=== PATIENT | male | born 1960 | race Caucasian/White ===

== ENCOUNTER 2018-06-28 09:37 | Inpatient (IN) ==
[2018-06-28] MEDS ORDERED: CeFAZolin Syr 2,000MG/20 ML 2,000 MG/20 ML SYRINGE IVPB ONE (09:57)
[2018-06-28] MEDS ORDERED: Albuterol 2.5 MG/3 ML NEBULIZER IH ONE ×2 (09:57→10:29)
--- NOTE | 2018-06-28 09:58 | History & Physical Report ---
Date of Encounter: 06/28/18 Time of Encounter: 09:58 24 Hour HP Update - Instructions Instructions: If the History and Physical is less than 30 days old and was completed prior to A.M. admission and or procedure and has NOT been updated on calendar day of procedure please complete this update prior to performing procedure. - Update Patient reports changes in Medical Condition: No Changes in examination, assessment, or condition: No Changes in Medication: No Preop tests/diagnostics Reviewed: Yes Surgery Remains Indicated: Yes Consent for Planned Operative Procedure(s) Verified: Yes - Pre-Operative Checklist Preoperative Checklist Indicated: No Prophylactic Antibiotic Ordered: Yes Is VTE Prophylaxis Indicated?: Yes
[2018-06-28] MEDS ORDERED: Ringers Solution, Lactated 1,000 ML IVC SCH ×2 (10:00→15:14)
--- NOTE | 2018-06-28 10:07 | Anesthesia Evaluation PreOp ---
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 HX Other Medical History: GERD, Other (ARTHRITIS, TONSILLAR CA POST XRT CHEMO - DRY MOUTH, DYSPHAGIA TO SOLID FOOD, PEG TUBE) Anesthesia History: No Prior Anesthetic Complications, Past Anesthesia (GB, ERCP, APPY) Medications and Allergies Albuterol Sulfate [Albuterol Inhaler] 2 puff PO Q6H PRN 06/28/18 [History] Dronabinol [Marinol] 5 mg PO BID 06/28/18 [History] Ergocalciferol (VITAMIN D2) [Vitamin D2] 50,000 units PO MO 06/28/18 [History] Ondansetron HCl 4 mg PO Q8H PRN 06/28/18 [History] OxyCODONE Immed Rel [Roxicodone 10 MG] 10 mg PO BID PRN 06/28/18 [History] Tramadol HCl [Ultram] 50 mg PO BID PRN 06/28/18 [History] Allergy/AdvReac Type Severity Reaction Status Date / Time No Known Allergies Allergy Verified 06/28/18 10:17 - Meds/Allergy Pre-op Review Medications Reviewed: Yes Allergies Reviewed: Yes Beta Blockers on Current Med List: No Anesthesia Results - Labs Laboratory Tests 06/16/18 06/16/18 06/16/18 14:24 14:24 14:24 Hgb 12.7 L Plt Count 216 PT 11.7 INR 1.0 APTT 30.5 Potassium 4.1 Creatinine 0.59 L Est GFR (Non-Af Amer) > 60 Calcium 9.3 Anesthesia Exam Vital Signs/O2 Sat, Most Current Temp Pulse Resp BP Pulse Ox 97.9 F 74 18 131/80 98 06/28/18 10:26 06/28/18 10:26 06/28/18 10:30 06/28/18 10:30 06/28/18 10:30 Weight: 63 KG - BMI 20 NPO (# of Hours): 8 - HEENT Mallampati: III (LIMITED MOUTH OPENING) Denture Type: Upper: Complete, Lower: Complete - Cardiac Rhythm: Regular - Pulmonary Breath Sounds: bilateral Clear Anesthesia Assess/Plan ASA Score: 3 Anesthetic Plan: Spinal Monitoring Plan: Standard Monitors Recovery Plan: PACU
[2018-06-28] MEDS ORDERED: Celecoxib 200 MG CAPSULE PO ONE (10:28)
[2018-06-28] MEDS ORDERED: Gabapentin 300 MG CAPSULE PO ONE (10:28)
[2018-06-28] MEDS ORDERED: *HR* Methadone 10 MG TABLET PO ONE (10:28)
[2018-06-28] MEDS ORDERED: Famotidine 20 MG/2 ML VIAL IVP ONE (10:28)
[2018-06-28] MEDS ORDERED: Ondansetron 4 MG/2 ML VIAL IVP ONE ×2 (10:28→10:29)
[2018-06-28] MEDS ORDERED: Acetaminophen IV 1,000 MG/100 ML INFUS..BTL IVPB ONE (10:28)
[2018-06-28] MEDS ORDERED: *HR* Promethazine 25 MG/ML VIAL IVP PRN ×2 (10:29→15:14)
[2018-06-28] MEDS ORDERED: *HR* OxyCODONE Immed Rel 5 MG TABLET PO PRN (10:29)
[2018-06-28] MEDS ORDERED: *HR* HYDROmorphone (PF) 1 MG/ML SYRINGE IVP PRN (10:29)
[2018-06-28] MEDS ORDERED: Ketorolac 30 MG/ML VIAL IVP ONE (10:29)
[2018-06-28] MEDS ORDERED: Ethanol\\Acetic Acid\\Na Ace\\Ben 1,000 ML IRRIG.SOLN IR ONE (10:40)
[2018-06-28] MEDS ORDERED: *HR* FentaNYL (PF) 100 MCG/2 ML VIAL ONE (10:52)
[2018-06-28] MEDS ORDERED: *HR* Midazolam HCl 2 MG/2 ML VIAL ONE (10:52)
[2018-06-28] MEDS ORDERED: Propofol 500 MG/50 ML INFUS..BTL ONE (10:53)
[2018-06-28] MEDS ORDERED: *HR* Propofol 200 MG/20 ML VIAL IVP ONE (10:53)
[2018-06-28] MEDS ORDERED: Lidocaine -MPF 2% 2 ML VIAL ONE (10:53)
--- NOTE | 2018-06-28 11:34 | Anesthesia Procedures ---
Date of Encounter: 06/28/18 Time of Encounter: 11:23 Procedures: Anesthesia - Epidural/Spinal Patient ID/Chart reviewed: Yes Supplemental Oxygen: Nasal Cannula Supplemental Oxygen Rate (L/min): 2 Sedation: Versed (mg): 2 Sedation: Fentanyl (mcg): 100 Site Prep: 0.5% Chlorhexidine/Alcohol Patient position: upright Local Anesthetic: Lidocaine 1% Amount of Local Anesthetic used: 3 Interspace Used: L3-L4 Blood: No CSF: Yes Paresthesia: No Spinal Needle Gauge: 25 (pencan) Spinal Dose: 1.8ml 0.75% bupivacaine Vitals + FHT's: VSS throughout, see nurses vitals
[2018-06-28] MEDS ORDERED: Tranexamic Acid 1,000 MG/10 ML VIAL ONE (11:41)
[2018-06-28] MEDS ORDERED: *HR* PHENYLEPHRINE 1,000 MCG/10 ML SYRINGE IVP ONE (12:05)
[2018-06-28] MEDS ORDERED: Ondansetron 4 MG/2 ML VIAL ONE (12:13)
[2018-06-28] MEDS ORDERED: *HR* Phenylephrine 10 MG/ML VIAL ONE (12:14)
--- NOTE | 2018-06-28 12:55 | Orthopedic Operative Note ---
Date of procedure: 06/28/18 Pre-op diagnosis: Left hip arthritis Post-op diagnosis: same Procedure: Procedure: Left Total Hip Replacment robotic-assisted Estimated blood loss: 200 cc Hardware: Metal and polyethylene replacement. Richard DM Cup: 62 cup Femoral size 8 anteverted Anato stem Head:4 head with Nataliya Procedural Notes: Grade 4 arthritic changes femoral head acetabular socket, procedure performed with robotic assistance. Operative leg 8 mm shorter than nonoperative as measured by preoperative CT scan Operative procedure: The patient was brought to the operating room and placed on the operating room table. After general anesthesia was administered the patient was placed in the lateral decubitus position with the operative leg up. All pressure points were padded appropriately and the head was stabilized in the neutral position. The operative extremity was prepped and draped in the sterile surgical fashion patient received IV antibiotic prior to skin incision. 3 Steinmann pins were placed in the iliac crest 3 cm proximal to the anterior superior iliac spine this was for the robotic-assisted sensor. This was done through a small 2 cm incision. A standard posterior approach is made to the operative hip, the incision was made through the skin and subcutaneous tissue hemostasis was obtained with Bovie cautery. Using careful sharp dissection the fascia was identified and incised exposing the external rotators. The greater trochanter was marked, and length was measured at this time utilizing robotic assistance. The external rotators were released off the greater trochanter and tagged with #2 FiberWire suture. The capsule was T'd open and the hip was brought into internal rotation. Patient noted to have grade 4 arthritic changes femoral head. The femoral neck cut was made at the appropriate level roughly 15 mm proximal to the lesser trochanter aced on preoperative templating. An anterior capsulotomy was performed for the anterior retractor. Soft tissues removed from the acetabulum. Patient noted to have grade 4 arthritic changes acetabulum. The acetabulum reference point was confirmed. The acetabulum was then mapped with robotic assistance. Based on the preoperative plan the acetabulum was reamed in one step with a 62 reamer. The 62 acetabulum was impacted with robotic assistance and 38 degrees of abduction and 21 degrees of anteversion. The hip was brought back in to internal rotation and prepared with the kick boxer followed by the canal finder followed by the reaming process to a size 14 broaching process in 20 degrees anteversion. It was broached up to the appro priate size 8 Trial reduction revealed leg lengths close to normal. The femoral implant was impacted in place in 20 degrees of anteversion. Trial reduction found the hip to be stable with 4 head and Nataliya. The trials were removed and the real implants were impacted in place. The hip was reduced, patient had robotic confirmed leg length of 9 mm longer than the contralateral side. The hip had excellent stability with forward flexion to 90 degrees adduction of 30 degrees and internal rotation of 60 degrees. The hip had no shuck. The hip sat with an antibacterial solution. It was irrigated out with 2 L of pulse irrigation. The Steinmann pins were removed. The hip was closed by the PA. The deep tissue was irrigated and closed deep with #1 PDS suture superficially with 0 PDS suture and skin was closed with Dermabond and zip tie. The patient was placed in a sterile dressing and abduction pillow. The patient was extubated and transferred to the recovery room in stable condition. Anesthesia: spinal Surgeon: Sebastián Elliott Was there an assistant refinery operator present: No Estimated blood loss (cc): 200 Condition: stable Disposition: PACU
--- NOTE | 2018-06-28 13:48 | Anesthesia Evaluation Post Op ---
Date of Encounter: 06/28/18 Time of Encounter: 13:47 - Discharge PostOp Status: Transfer Patient to floor (Patient's vital signs have been reviewed. Patient is stable postoperatively and has adequately recovered from anesthesia. Patient is determined to have stable airway patency and respiratory function including respiratory rate and oxygen saturation. Patient has a stable heart rate, blood pressure and adequate hydration. Patients mental status is acceptable. Patients temperature is appropriate. Pain and nausea are adequately controlled.)
[2018-06-28 14:16] LABS: Hematocrit 35.6 % (37.5-50.1); Hemoglobin 12.1 g/dL (12.9-16.9)
[2018-06-28] MEDS ORDERED: MOM Conc 10 ML UD.LIQ PO PRN (15:14)
[2018-06-28] MEDS ORDERED: Naloxone 0.4 MG/ML INJ IVP PRN (15:14)
[2018-06-28] MEDS ORDERED: Ondansetron 4 MG/2 ML VIAL IVP PRN (15:14)
[2018-06-28] MEDS ORDERED: Temazepam 15 MG CAPSULE PO PRN (15:14)
[2018-06-28] MEDS ORDERED: traMADol 50 MG TABLET PO PRN (15:14)
[2018-06-28] MEDS ORDERED: Sennosides 8.6 MG TABLET PO PRN (15:14)
[2018-06-28] MEDS: Ascorbic Acid 500 MG TABLET PO SCH (16:53)
[2018-06-28] MEDS: *HR* Enoxaparin 30 MG/0.3 ML SYRINGE SQ SCH (16:54)
[2018-06-28] MEDS ORDERED: *HR* Enoxaparin 30 MG/0.3 ML SYRINGE SQ SCH (18:00)
[2018-06-28] MEDS: Cholecalciferol (D-3) 1,000 UNIT TABLET PO SCH (18:51)
[2018-06-28] MEDS: *HR* OxyCODONE Immed Rel 5 MG TABLET PO PRN (21:49)
[2018-06-28] MEDS: HYDROcodone BIT/Homatropine 5 MG TABLET PO PRN (23:11)
[2018-06-29] MEDS: *HR* OxyCODONE Immed Rel 5 MG TABLET PO PRN ×3 (02:55→17:32)
[2018-06-29] MEDS ORDERED: Acetaminophen IV 1,000 MG/100 ML INFUS..BTL IVPB PRN (03:34)
[2018-06-29 04:32] LABS: Basophils % 0.5 %; Immature Granulocytes % 0.3 % (0-4); Lymphocytes # 0.9 K/mcL (0.6-4.6); Lymphocytes % 10.1 %; Mean Corpuscular HGB Conc 35.2 g/dL (31.6-35.5); Mean Corpuscular Hemoglobin 34.3 pg (28.0-33.3); Mean Corpuscular Volume 97.5 fL (83.0-100.0); Mean Platelet Volume 12.5 fL (9.4-12.4); Monocytes # 1.3 K/mcL (0.0-1.3); Neutrophils # 6.5 K/mcL (1.6-8.9); Platelet Count 148 K/mcL (140-400); Red Blood Count 2.77 M/mcL (4.19-5.50); Red Cell Distribution Width 13.4 % (11.5-14.5); Segmented Neutrophils % 74.1 %
[2018-06-29 04:41] LABS: Hemoglobin 9.5 g/dL (12.9-16.9)
[2018-06-29 04:42] LABS: BUN/Creatinine Ratio 16 (6-26); Blood Urea Nitrogen 7 mg/dL (6-20); Calcium 8.1 mg/dL (8.6-10.3); Carbon Dioxide 27 mEq/L (23-29); Chloride 96 mEq/L (98-107); Glucose 108 mg/dL (70-105); Osmolality,Calculated 261 (280-300); Potassium 4.2 mEq/L (3.5-5.1); Sodium 126 mEq/L (136-145); eGFR For Non-African Americans > 60 (> 60)
[2018-06-29] MEDS: *HR* Enoxaparin 30 MG/0.3 ML SYRINGE SQ SCH ×2 (05:30→17:29)
[2018-06-29] MEDS: Ketorolac 30 MG/ML VIAL IVP PRN ×2 (05:30→20:13)
--- NOTE | 2018-06-29 06:52 | Orthopedics Progress Note ---
Date of Encounter: 06/29/18 Time of Encounter: 06:51 - Assessment and Plan (1) Acute blood loss anemia Current Visit: Yes Status: Acute Subjective Interval history: Patient was seen this morning doing well without complaints. Afebrile vital signs stable. Operative extremity: Neurovascularly intact Dressing clean dry and intact Calves nontender Assessment and plan: Continue with postoperative care Hemoglobin 9.5 Objective Vital signs: Vital Signs Temp Pulse Resp BP Pulse Ox 06/29/18 03:23 98.8 F 68 14 107/67 99 06/28/18 23:36 98.1 F 66 17 92/58 96 06/28/18 19:21 98.1 F 69 17 110/65 99 06/28/18 17:15 97.6 F 72 16 124/75 100 06/28/18 16:15 97.6 F 74 16 130/81 100 06/28/18 15:14 97.5 F L 60 14 126/79 100 06/28/18 14:45 97.4 F L 63 16 119/77 100 06/28/18 14:16 97.5 F L 61 16 106/61 100 06/28/18 13:55 97.8 F 59 18 110/74 98 06/28/18 13:48 97.0 F L 60 12 112/61 99 06/28/18 13:38 60 12 114/74 94 06/28/18 13:28 57 16 105/64 96 06/28/18 13:18 98.3 F 57 16 96/62 100 06/28/18 11:40 78 18 120/71 100 06/28/18 11:30 18 126/73 100 06/28/18 10:30 18 131/80 98 06/28/18 10:26 97.9 F 74 18 131/80 98 Intake and Output 06/28/18 06/28/18 06/29/18 15:59 23:59 07:59 Intake Total 425 / 425 100 / 100 Output Total 200 / 1800 1600 / 1800 Balance -200 / -1375 -1175 / -1375 100 / 100 Intake: IV Fluids 100 / 100 100 / 100 Ofirmev 1,000 mg/100 ml 1,000 100 / 100 mg In 100 ml @ 400 mls/hr IVPB Q6HR PRN Rx#:[id number] Ancef 2,000 MG In 0.9 % Sodium 100 / 100 Chloride 100 ML @ 200 mls/hr IVPB Q8HR [facility] Rx#:[id number] Oral 325 / 325 Output: Urine 1600 / 1600 Estimated Blood Loss 200 / 200 Other: Weight 62.596 kg - Labs CBC & BMP: 06/29/18 03:45 06/29/18 03:45 Labs: Abnormal lab results RBC 2.77 M/mcL (4.19-5.50) L 06/29/18 03:45 Hgb 9.5 g/dL (12.9-16.9) L D 06/29/18 03:45 Hct 27.0 % (37.5-50.1) L 06/29/18 03:45 MCH 34.3 pg (28.0-33.3) H 06/29/18 03:45 MPV 12.5 fL (9.4-12.4) H 06/29/18 03:45 Sodium 126 mEq/L (136-145) L 06/29/18 03:45 Chloride 96 mEq/L (98-107) L 06/29/18 03:45 0.43 mg/dL (0.70-1.30) L 06/29/18 03:45 Glucose 108 mg/dL (70-105) H 06/29/18 03:45 261 (280-300) L 06/29/18 03:45 Calcium 8.1 mg/dL (8.6-10.3) L 06/29/18 03:45 Consult Discharge Plan - Plan Referrals: Jimmy Byers MD [Primary Care Provider] -
[2018-06-29] MEDS: Ascorbic Acid 500 MG TABLET PO SCH ×2 (09:03→17:28)
[2018-06-29] MEDS: Cholecalciferol (D-3) 1,000 UNIT TABLET PO SCH (09:03)
[2018-06-29] MEDS: Multivit/Ca/Min/Fe/FA 1 TAB TABLET PO SCH (09:03)
[2018-06-29] MEDS: HYDROcodone BIT/Homatropine 5 MG TABLET PO PRN (09:13)
--- NOTE | 2018-06-29 09:16 | Discharge Summary ---
Orders not resulted at time of discharge: Pending orders 06/28/18 12:53 Surgical Pathology [PTH] Routine 06/30/18 04:00 Basic Metabolic Panel DAILY Complete Blood Count [HEME] DAILY Date of Encounter: 06/30/18 Time of Encounter: 11:25 - Discharge Diagnosis (1) Acute blood loss anemia Priority: Secondary Status: Acute (2) Status post total hip replacement, left Priority: Primary Status: Acute (3) Arthritis of left hip Priority: Primary Status: Chronic (4) COPD (chronic obstructive pulmonary disease) Priority: Secondary Status: Chronic Qualifiers: COPD type: unspecified COPD Qualified Code(s): J44.9 - Chronic obstructive pulmonary disease, unspecified (5) Chronic pain Priority: Secondary Status: Chronic Qualifiers: Chronic pain type: other chronic pain Qualified Code(s): G89.29 - Other chronic pain (6) HTN (hypertension) Priority: Secondary Status: Chronic Qualifiers: Hypertension type: unspecified Qualified Code(s): I10 - Essential (primary) hypertension (7) History of throat cancer Priority: Secondary Status: Chronic (8) PEG (percutaneous endoscopic gastrostomy) status Priority: Secondary Status: Chronic (9) Tobacco dependence Priority: Secondary Status: Chronic (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 Bass is a 57 year old male POD#2 Date of procedure: 06/28/18 Pre-op diagnosis: Left hip arthritis Post-op diagnosis: same Procedure: Left Total Hip Replacment robotic-assisted Patient seen at bedside. A&Ox3 Dressing and incision c/d/i No calf tenderness, erythema, or warmth. Neurovascularly intact b/l LE. Labwork, vitals, and medications reviewed. Pain control: Adequate Participating in PT. All questions and concerns addressed. Educated on use of incentive spirometer, ambulation, and hydration. Patient educated on post-operative restrictions and care. Addressed: Patient with chronic PEG tube - initially patient denied getting much through tube however on POD#1 patient's electrolytes demonstrate abnormalities and concern for inadequate nutrition at which point patient's spouse informed patient using 5-6 cans of Jevity via PEG daily. Nutrition orders clarified and ammended and Speech therapy input appreciated re: diet. D/C plan: Home with home health therapy - Time Spent with Patient Total time spent providing and/or coordinating discharge services: - Discharge Medications Prescriptions: New Aspirin Enteric Coated [Aspirin EC] 325 mg PO BID 10 Days #20 tablet.dr Continued Ergocalciferol (VITAMIN D2) [Vitamin D2] 50,000 units PO MO Tramadol HCl [Ultram] 50 mg PO BID PRN PRN Reason: Pain OxyCODONE Immed Rel [Roxicodone 10 MG] 10 mg PO BID PRN PRN Reason: Pain Dronabinol [Marinol] 5 mg PO BID Albuterol Sulfate [Albuterol Inhaler] 2 puff PO Q6H PRN PRN Reason: Shortness Of Breath Ondansetron HCl 4 mg PO Q8H PRN PRN Reason: Nausea Home Medications: Albuterol Sulfate [Albuterol Inhaler] 2 puff PO Q6H PRN 06/28/18 [History] Dronabinol [Marinol] 5 mg PO BID 06/28/18 [History] Ergocalciferol (VITAMIN D2) [Vitamin D2] 50,000 units PO MO 06/28/18 [History] Ondansetron HCl 4 mg PO Q8H PRN 06/28/18 [History] OxyCODONE Immed Rel [Roxicodone 10 MG] 10 mg PO BID PRN 06/28/18 [History] Tramadol HCl [Ultram] 50 mg PO BID PRN 06/28/18 [History] Aspirin Enteric Coated [Aspirin EC] 325 mg PO BID 10 Days #20 tablet. 06/29/18 [Rx] Allergies/Adverse Reactions: Allergy/AdvReac Type Severity Reaction Status Date / Time No Known Allergies Allergy Verified 06/28/18 10:17 Date of admission: 06/28/18 14:32 Primary care physician: Jimmy Byers MD Consults: 06/28/18 15:14 Consult to Nurse Navigator [CONS] Routine Comment: ortho navigator Consult to Nutrition [CONS] Routine Comment: Consulting Provider: NUTRITION Reason for Dietary Consult: Other Other:: Proper nutrition to facilitate wound healing Consult to Occupational Therapy [CONS] Routine Comment: Evaluate, develop and implement POC Reason for Consult: total hip replacement Does patient have active BEDREST order?: No Is patient medically & hemodynamically stable?: Yes Consult to Physical Therapy [CONS] Routine Comment: Evaluate, develop and implement POC Reason for Consult: total hip replacement Does patient have active BEDREST order?: No Is patient medically & hemodynamically stable?: Yes Consult to Medical Referral Coordinator [CONS] Routine Reason for SW Consult: post op joint replacement RT Post Op Consult [CONS] Routine Discharging clinician: Sebastián Elliott Anticipated date of discharge: 06/30/18 - VTE Documentation of Mechanical Device: Venous foot pump, device Labs on day of discharge: Labs from last 24 hours 06/29/18 06/29/18 06/28/18 03:45 03:45 13:55 WBC 8.8 RBC 2.77 L Hgb 9.5 L D 12.1 L Hct 27.0 L 35.6 L MCV 97.5 MCH 34.3 H MCHC 35.2 RDW 13.4 Plt Count 148 MPV 12.5 H Immature Gran % 0.3 Seg Neutrophils % 74.1 Lymphocytes % 10.1 Monocytes % 15.0 Eosinophils % 0.0 Basophils % 0.5 Neutrophils # 6.5 Lymphocytes # 0.9 Monocytes # 1.3 Eosinophils # 0.0 Basophils # 0.0 Sodium 126 L Potassium 4.2 Chloride 96 L Carbon Dioxide 27 BUN 7 Creatinine 0.43 L Est GFR ( Amer) > 60 Est GFR (Non-Af Amer) > 60 BUN/Creatinine Ratio 16 Glucose 108 H Calculated Osmolality 261 L Calcium 8.1 L - Impressions ITS Impressions Hip X-Ray 06/28/18 01:00 IMPRESSION: Total hip arthropasty without acute hardware complication. D/ / Lester Fan MD / Lester Fan MD Interpreting Provider: Lester Fan MD - Patient Status Disposition: Home Health Service Condition: Fair Functional capacity at discharge: uses cane/walker Overall status at discharge: patient is progressing back to baseline - Discharge Instructions Follow Up With: Jimmy Byers MD [Primary Care Provider] - Additional Instructions: Discharge Instructions: Total Hip Replacement Please call [facility] ([phone]), your Primary Care Physician, or report to the Emergency Room if you have any of the following symptoms: Nausea, vomiting, fever greater that 101.5, swelling, chest pain, shortness of breath, increased pain/redness/drainage/odor for your incision site, numbness/tingling, or any other concerning symptoms. ACTIVITY:Weight-bearing as tolerated for 8 weeks with hip dislocation precautions that physical therapy taught you. You may progress as tolerated under the guidance of your physical therapist. You do not need to sleep with a pillow between your legs. You can also seep on the operative side or on your stomach. Incentive Spirometer 10 times an hour. MEDICATIONS: Upon discharge resume your home medications. Take all the medications as prescribed. Take a stool softener if taking narcotic pain medications. Stool softeners are only effective if you drink enough fluids. Drink 6-8 glass of water or fluids a day, unless this is not allowed for another health problem. Despite using stool softeners, if you haven't had a bowel movement in 3 days, please switch to a gentle laxative. Gentle laxatives are sold over the counter. You should have a bowel movement within 24 hours, if not call the office. You will be discharged from the hospital with a prescription for pain medication. You are encouraged to decrease the use of narcotic pain medication as tolerated. Should you require a refill, please call the office. [facility] prescribes narcotic pain medication for only 4-6 weeks after surgery. If you require pain medication beyond this time period, you may be referred to your Primary Care Physician or to the Pain Clinic for further evaluation. Plan ahead for refills on pain medication as many narcotics either need to be picked up at the office or mailed. It is best to call 48-72 hours in advance of needing a prescription refill so you don't run out of medication. To help control the post-operative pain, you may take NSAIDs (Aleve,Advil, Motrin, ibuprofen, naprosyn) or Tylenol as prescribed on the bottle in addition to the pain medication. ANTICOAGULATION (blood thinners): Continue your Aspirin, Lovenox or Coumadin as prescribed to help prevent a blood clot in the leg or in the lungs. As long as your incision remains dry and you tolerate the NSAIDs (Aleve, Advil, Motrin, Ibuprofen, Naprosyn), it is OK to use the NSAIDS while you are taking your anticoagulation medication. Should your incision start to drain, stop the NSAID and contact our office. Common symptoms of blood clot in the legs include: localized pain, swelling, calf tenderness, redness or discoloration of the skin. Blood clot in the lung symptoms include: shortness of breath, rapid pulse, sweating, and chest pain that worsens with deep breathing, coughing up blood, lightheadedness, feelings of anxiety. If you experience any of these symptoms notify your physician immediately, go to the emergency room, or if having trouble breathing, call 911. WOUND CARE: Leave the dressing on for 7 to 10days. You may change the dressing if it is saturated greater than 50%. Do not get the dressing wet at anytime. Wash your hands with antibacterial soap, rinse and dry prior to any wound care. If you have ruddy the visiting nurse or rehab facility can remove the stapes 10-14 days after surgery and place steri-strips across the wound. Leave the steri-strips in place until they fall off on their own. You may let water from the shower run on top of the steri-strips. If you do not have a visiting nurse or rehab facility, you will need to return to the office at 10-14 days for the ruddy to be removed. If you have itching or redness around the dressing call the office. FOLLOW-UP: Please follow up with your surgeon in the orthopedic clinic in 6 weeks from the day of surgery. If you have ruddy that need to be removed, you will need to come back to the office in 10-14 days from the day of surgery. - Diet and Activity Activity: as per physical therapy Diet: advance to your usual diet
--- NOTE | 2018-06-29 09:16 | Event Note ---
Date of Encounter: 06/29/18
--- NOTE | 2018-06-29 09:17 | Physician Discharge Referral ---
Home Health/Hosp Referral Info Transfer to: Home Health Attending Provider: Dr. Sebastián Elliott - Diagnosis (1) Arthritis of left hip Priority: Primary Status: Chronic (2) Status post total hip replacement, left Priority: Primary Status: Acute (3) COPD (chronic obstructive pulmonary disease) Priority: Secondary Status: Chronic (4) Tobacco dependence Priority: Secondary Status: Chronic (5) HTN (hypertension) Priority: Secondary Status: Chronic (6) Wasting disease Priority: Secondary Status: Chronic (7) PEG (percutaneous endoscopic gastrostomy) status Priority: Secondary Status: Chronic (8) History of throat cancer Priority: Secondary Status: Chronic (9) Chronic pain Priority: Secondary Status: Chronic - Respiratory Orders Smoking Cessation: Smoking cessation has been advised. For more information, call the [place] Tobacco Quit Line at 1-178-WHVW-NOW. - Dressing/Wound Care Site: left hip Type of Dressing/Treatments w/Frequency: Opsite placed. Keep dressing intact until first follow up appointment. If greater than 50% saturated, notify office, remove dressing and place appropriate dressing back in place. Leave Zipline intact. Opsite dressing is water resistant, not water-proof. OK to shower, but do not get dressing wet. - Diet/Nutrition Diet/Nutrition Orders: Regular - Activity Activity Orders: Up ad carson, Ambulate, Chair, Walker - Services Needed Following services are medically necessary services: Nursing, Home Health Aide, Physical Therapy, Occupational Therapy, Med Social Work Home Care Orders: Total Hip replacement Precautions Apply cold therapy 3-6x/day for 20 minutes at a time. Encourage ambulation throughout the day and incentive spirometer 10x/hour. Elevate affected extremity as tolerated. Brace: Wear hip abduction pillow when laying/sleeping - Transfer Medications Prescriptions: Aspirin Enteric Coated [Aspirin EC] 325 mg PO BID 10 Days #20 tablet.dr [place] Medications: Albuterol Sulfate [Albuterol Inhaler] 2 puff PO Q6H PRN 06/28/18 [History] Dronabinol [Marinol] 5 mg PO BID 06/28/18 [History] Ergocalciferol (VITAMIN D2) [Vitamin D2] 50,000 units PO MO 06/28/18 [History] Ondansetron HCl 4 mg PO Q8H PRN 06/28/18 [History] OxyCODONE Immed Rel [Roxicodone 10 MG] 10 mg PO BID PRN 06/28/18 [History] Tramadol HCl [Ultram] 50 mg PO BID PRN 06/28/18 [History] Aspirin Enteric Coated [Aspirin EC] 325 mg PO BID 10 Days #20 tablet. 06/29/18 [Rx] Allergies/Adverse Reactions: Allergy/AdvReac Type Severity Reaction Status Date / Time No Known Allergies Allergy Verified 06/28/18 10:17 Certification: Further, I certify that my clinical findings support that this patient is homebound (i.e. absences from home require considerable and taxing effort and are for medical reasons or scientologist services or infrequently or short duration when for other reasons) because: Homebound Reason: Post-surgery restriction and or conditions limit ability to leave home Attestation: My signature below is to certify that this patient is under my care and that I, or nurse practitioner, or a physician corporate administrative assistant working with me, has a [id number] encounter with this patient.
[2018-06-29] MEDS ORDERED: *HR* OxyCODONE Immed Rel 5 MG TABLET PO PRN ×2 (14:26→14:27)
[2018-06-29] MEDS ORDERED: 0.9 % Sodium Chloride 500 ML IVC ONE (14:32)
[2018-06-29] MEDS: Nicotine 14 MG PATCH.TD24 TD SCH (17:27)
[2018-06-30] MEDS: *HR* OxyCODONE Immed Rel 5 MG TABLET PO PRN ×2 (03:25→09:35)
--- NOTE | 2018-06-30 06:26 | Orthopedics Progress Note ---
Date of Encounter: 06/30/18 Time of Encounter: 06:25 - Assessment and Plan (1) Acute blood loss anemia Current Visit: Yes Status: Acute Subjective Interval history: Patient was seen this morning doing well without complaints. Afebrile vital signs stable. Operative extremity: Neurovascularly intact Dressing clean dry and intact Calves nontender Assessment and plan: Continue with postoperative care Labs pending Objective Vital signs: Vital Signs Temp Pulse Resp BP BP BP BP 06/30/18 05:05 98.3 F 78 17 108/67 06/29/18 23:52 98.4 F 75 17 97/61 06/29/18 18:47 97.6 F 61 17 103/61 06/29/18 18:00 103/61 108/63 103/66 06/29/18 16:02 97.6 F 73 18 107/55 06/29/18 13:14 95/60 113/64 115/70 06/29/18 10:15 98.1 F 70 18 91/45 06/29/18 07:41 97.9 F 69 14 92/56 Pulse Ox 06/30/18 05:05 98 06/29/18 23:52 97 06/29/18 18:47 98 06/29/18 18:00 06/29/18 16:02 97 06/29/18 13:14 06/29/18 10:15 92 06/29/18 07:41 97 Intake and Output 06/29/18 06/29/18 06/30/18 15:59 23:59 07:59 Intake Total 360 / 900 440 / 900 Output Total 400 / 2225 1125 / 2225 Balance -40 / -1325 -685 / -1325 Intake: Oral 360 / 800 440 / 800 Output: Urine 400 / 2225 1125 / 2225 Other: Meal Lunch Dinner Percent of Meal Consumed 5% 75% # Voids 1 Weight 62.7 kg Patient Weight 06/30/18 23:59 Weight 62.7 kg - Labs CBC & BMP: 06/29/18 03:45 06/29/18 03:45 Labs: Abnormal lab results RBC 2.77 M/mcL (4.19-5.50) L 06/29/18 03:45 Hgb 9.5 g/dL (12.9-16.9) L D 06/29/18 03:45 Hct 27.0 % (37.5-50.1) L 06/29/18 03:45 MCH 34.3 pg (28.0-33.3) H 06/29/18 03:45 MPV 12.5 fL (9.4-12.4) H 06/29/18 03:45 Sodium 126 mEq/L (136-145) L 06/29/18 03:45 Chloride 96 mEq/L (98-107) L 06/29/18 03:45 0.43 mg/dL (0.70-1.30) L 06/29/18 03:45 Glucose 108 mg/dL (70-105) H 06/29/18 03:45 261 (280-300) L 06/29/18 03:45 Calcium 8.1 mg/dL (8.6-10.3) L 06/29/18 03:45 Consult Discharge Plan - Plan Referrals: Jimmy Byers MD [Primary Care Provider] - Prescriptions: Aspirin Enteric Coated [Aspirin EC] 325 mg PO BID 10 Days #20 tablet.
[2018-06-30] MEDS: *HR* Enoxaparin 30 MG/0.3 ML SYRINGE SQ SCH (06:36)
[2018-06-30] MEDS: HYDROcodone BIT/Homatropine 5 MG TABLET PO PRN (06:36)
[2018-06-30 08:29] LABS: Basophils # 0.1 K/mcL (0.0-0.2); Eosinophils # 0.1 K/mcL (0.0-0.6); Eosinophils % 0.8 %; Hematocrit 26.2 % (37.5-50.1); Immature Granulocytes % 0.2 % (0-4); Lymphocytes # 0.6 K/mcL (0.6-4.6); Mean Corpuscular HGB Conc 34.4 g/dL (31.6-35.5); Mean Corpuscular Hemoglobin 33.7 pg (28.0-33.3); Mean Corpuscular Volume 98.1 fL (83.0-100.0); Mean Platelet Volume 12.4 fL (9.4-12.4); Monocytes % 16.5 %; Neutrophils # 4.5 K/mcL (1.6-8.9); Platelet Count 129 K/mcL (140-400); Red Blood Count 2.67 M/mcL (4.19-5.50); Red Cell Distribution Width 13.6 % (11.5-14.5); Segmented Neutrophils % 72.5 %
[2018-06-30 08:31] LABS: BUN/Creatinine Ratio 12 (6-26); Blood Urea Nitrogen 6 mg/dL (6-20); Calcium 8.8 mg/dL (8.6-10.3); Carbon Dioxide 29 mEq/L (23-29); Chloride 99 mEq/L (98-107); Glucose 161 mg/dL (70-105); Osmolality,Calculated 277 (280-300); Potassium 3.9 mEq/L (3.5-5.1); Sodium 133 mEq/L (136-145); eGFR For Non-African Americans > 60 (> 60)
[2018-06-30] MEDS: Nicotine 14 MG PATCH.TD24 TD SCH (09:35)
[2018-06-30] MEDS: Cholecalciferol (D-3) 1,000 UNIT TABLET PO SCH (09:35)
[2018-06-30] MEDS: Ascorbic Acid 500 MG TABLET PO SCH (09:35)
[2018-06-30] MEDS: Multivit/Ca/Min/Fe/FA 1 TAB TABLET PO SCH (09:35)
[2018-06-30 11:23] VITALS: BP 114/68
== END 2018-06-30 13:46 | disposition home health service (06) | DRG 301 ==
LOC: SAMDAY 09:37 → 3NENU 14:32
PROVIDERS: ADMIT Orthopaedic Surgery; ATTEND Orthopaedic Surgery

== ENCOUNTER 2018-07-12 08:10 | Inpatient (IN) ==
[2018-07-12] MEDS ORDERED: Ipratropium/Albuterol Neb 3 ML IH ONE (08:44)
--- NOTE | 2018-07-12 08:52 | Emergency Department Note ---
Disposition Clinical Impression: Hyponatremia Pneumonia Qualifiers: Pneumonia type: due to unspecified organism Laterality: right Lung location: upper lobe of lung Qualified Code(s): J18.1 - Lobar pneumonia, unspecified organism Sepsis Qualifiers: Sepsis type: sepsis due to unspecified organism Qualified Code(s): A41.9 - Sepsis, unspecified organism Anemia Qualifiers: Anemia type: unspecified type Qualified Code(s): D64.9 - Anemia, unspecified Disposition: Admitted As Inpatient Condition: Fair Time of Disposition: 10:13 General Adult HPI - General Chief complaint: ED Recheck/Abnormal Lab/Rx Stated complaint: Abnormal Labs + WBC Time Seen by Provider: 07/12/18 08:14 Source: patient Mode of arrival: ambulatory Limitations: no limitations Nursing Notes Reviewed: Yes Vital Signs Reviewed: Yes - History of Present Illness HPI Narrative: Patient is a 57-year-old male with a past medical history of tonsillar cancer, hypertension, COPD, cholecystectomy, and hip replacement presents to the emergency department for evaluation of fever, productive cough, and shortness of breath that has been going on for the past 5 days. Patient had a fever yesterday of 101 and has not had a fever today. His is at bedside and she states that he was seen by his nurse practitioner on Thursday and had labs sent in which they were called back and told that he had an elevated white count and recommended he come to the emergency department at that time. Patient family states they have not been able to come to the department until today. The patient has a G-tube in place due to having all of his teeth removed secondary to infection. The G-tube was placed at the [facility] (Former[facility]) and is greater than 1-year-old. Denies any new discharge or drainage from the site of the G-tube however he has been putting ointment around the edges help with the irritation. The patient also had a hip replacement on June [id number] by Dr. Elliott in which she has been getting routine wound checks and he has had no drainage from the wound or no surrounding redness. The bandages are clean. Pain Scale: 6 - Related Data Home Medications Medication Instructions Recorded Confirmed Albuterol Sulfate [Albuterol 2 puff PO Q6H PRN 06/28/18 06/28/18 Inhaler] Dronabinol [Marinol] 5 mg PO BID 06/28/18 06/28/18 Ergocalciferol (VITAMIN D2) 50,000 units PO MO 06/28/18 06/28/18 [Vitamin D2] Ondansetron HCl 4 mg PO Q8H PRN 06/28/18 06/28/18 OxyCODONE Immed Rel [Roxicodone 10 10 mg PO BID PRN 06/28/18 06/28/18 MG] Tramadol HCl [Ultram] 50 mg PO BID PRN 06/28/18 06/28/18 Albuterol Neb [AccuNeb] 1.25 mg IH Q6H 07/12/18 07/12/18 Allergies Allergy/AdvReac Type Severity Reaction Status Date / Time No Known Allergies Allergy Verified 06/28/18 10:17 All systems ED: reviewed and negative except as stated. Review of Systems: As Per HPI Constitutional: Reports: fever, chills Cardiovascular: Reports: dyspnea on exertion. Denies: chest pain, palpitations, orthopnea, edema, syncope, paroxysmal nocturnal dyspnea Respiratory: Reports: cough, dyspnea, wheezes, sputum production. Denies: hemoptysis, stridor Gastrointestinal: Reports: nausea. Denies: abdominal pain, vomiting, diarrhea Genitourinary: Denies: urgency, dysuria Musculoskeletal: Denies: back pain, neck pain Integumentary: Denies: rash Past Medical History - Past Medical History Attestation: Yes The following information was validated with the patient. Medical history: Reports: arthritis, cancer, COPD, hypertension Surgical history: Reports: appendectomy, cholecystectomy, other Psychiatric history: Reports: no psych history - Social History Smoking Status: Current every day smoker Smokeless Tobacco Status: No Alcohol use: Reports: none Drug use: Reports: none Physical Exam - General Limitations: no limitations General appearance: alert, in no apparent distress Course Course Narrative: Due to patient's recent hospitalization for a left hip replacement on June 28 as well as his frequent wound checks by healthcare providers patient will undergo evaluation for infection. His CBC that was performed outpatient did show a significant leukocytosis with neutrophil elevation. He is complaining of productive cough as well as dyspnea in the setting of COPD. He will receive a breathing treatment undergo evaluation for what I suspect will be sepsis. He is meeting 1 SIRS criteria at this time that his heart rate elevation. His vitals are otherwise unremarkable. - Reevaluation(s) Reevaluation #1: Patient's right upper lobe appears to have infiltrate on chest x-ray. His lactate is normal. He has a chronically low hemoglobin and sodium. He will receive a 500 ML bolus of normal saline as well as healthcare associated pneumonia coverage with Zosyn, vancomycin and Zithromax. The patient received a DuoNeb treatment which she states did improve his breathing. He was admitted to the hospitalist. Vital Signs Temperature 98.7 F 07/12/18 08:12 Pulse Rate 110 07/12/18 08:12 Respiratory Rate 18 07/12/18 08:12 Blood Pressure 112/70 07/12/18 08:12 O2 Sat by Pulse Oximetry 94 07/12/18 08:12 Temperature 98.7 F 07/12/18 08:12 Pulse Rate 88 07/12/18 09:19 Respiratory Rate 18 07/12/18 09:19 Blood Pressure 119/76 07/12/18 09:19 O2 Sat by Pulse Oximetry 99 07/12/18 09:19 Oxygen Delivery Oxygen Delivery Room Air Medical Decision Making - Medical Records Medical records reviewed: Yes I reviewed the patient's medical records. - Lab Data Lab results reviewed: Yes I reviewed the patient's lab results. Result diagrams: 07/12/18 09:26 07/12/18 09:26 Lab Results 07/12/18 07/12/18 07/12/18 Range/Units 09:26 09:26 09:26 WBC 15.9 H (4.3-11.1) K/mcL RBC 2.82 L (4.19-5.50) M/mcL Hgb 9.2 L (12.9-16.9) g/dL Hct 26.9 L (37.5-50.1) % MCV 95.4 (83.0-100.0) fL MCH 32.6 (28.0-33.3) pg MCHC 34.2 (31.6-35.5) g/dL RDW 13.9 (11.5-14.5) % Plt Count 423 H (140-400) K/mcL MPV 11.2 (9.4-12.4) fL Immature Gran % 1.6 (0-4) % Seg Neutrophils % 82.6 % Lymphocytes % 3.9 % Monocytes % 11.4 % Eosinophils % 0.2 % Basophils % 0.3 % Neutrophils # 13.1 H (1.6-8.9) K/mcL Lymphocytes # 0.6 (0.6-4.6) K/mcL Monocytes # 1.8 H (0.0-1.3) K/mcL Eosinophils # 0.0 (0.0-0.6) K/mcL Basophils # 0.0 (0.0-0.2) K/mcL Sodium 128 L (136-145) mEq/L Potassium 3.8 (3.5-5.1) mEq/L Chloride 90 L (98-107) mEq/L Carbon Dioxide 30 H (23-29) mEq/L BUN 7 (6-20) mg/dL Creatinine 0.52 L (0.70-1.30) mg/dL Est GFR ( Amer) > 60 (> 60) Est GFR (Non-Af Amer) > 60 (> 60) BUN/Creatinine Ratio 13 (6-26) Glucose 114 H (70-105) mg/dL Calculated Osmolality 265 L (280-300) Lactic Acid 1.2 (0.5-2.2) mmol/L Calcium 9.2 (8.6-10.3) mg/dL Troponin I < 0.03 (< 0.04) ng/mL - Radiology Data Radiology results reviewed: Yes I reviewed the patient's radiology results. Chest X-Ray 07/12/18 08:45 IMPRESSION: 1. Right upper lobe pneumonia. Follow-up to resolution is recommended. 2. COPD. D/ / Viktor Sweeney MD / Viktor Sweeney MD Interpreting Provider: Viktor Sweeney MD Hip X-Ray 07/12/18 08:46 IMPRESSION: 1. Left hip arthroplasty with no acute abnormality. D/ / Viktor Sweeney MD / Viktor Sweeney MD Interpreting Provider: Viktor Sweeney MD - EKG Data EKG #1 EKG attestation: Yes I reviewed and interpreted this EKG. EKG results narrative: EKG done at 9:18 shows sinus rhythm at a rate of 85 bpm. Normal axis. Intervals within normal limits. No signs of ST elevation, ST depression or significant Q waves present. Unchanged from EKG done in May 2002.
--- NOTE | 2018-07-12 09:05 | Emergency Department Note ---
Disposition Clinical Impression: Hyponatremia Pneumonia Qualifiers: Pneumonia type: due to unspecified organism Laterality: right Lung location: upper lobe of lung Qualified Code(s): J18.1 - Lobar pneumonia, unspecified organism Sepsis Qualifiers: Sepsis type: sepsis due to unspecified organism Qualified Code(s): A41.9 - Sepsis, unspecified organism Anemia Qualifiers: Anemia type: unspecified type Qualified Code(s): D64.9 - Anemia, unspecified Disposition: Admitted As Inpatient Condition: Fair Time of Disposition: 10:50 General Adult HPI - General Chief complaint: ED Recheck/Abnormal Lab/Rx Stated complaint: Abnormal Labs + WBC Time Seen by Provider: 07/12/18 08:14 Source: patient Mode of arrival: ambulatory Limitations: no limitations - History of Present Illness Pain Scale: 6 - Related Data Home Medications Medication Instructions Recorded Confirmed Albuterol Sulfate [Albuterol 2 puff PO Q6H PRN 06/28/18 06/28/18 Inhaler] Dronabinol [Marinol] 5 mg PO BID 06/28/18 06/28/18 Ergocalciferol (VITAMIN D2) 50,000 units PO MO 06/28/18 06/28/18 [Vitamin D2] Ondansetron HCl 4 mg PO Q8H PRN 06/28/18 06/28/18 OxyCODONE Immed Rel [Roxicodone 10 10 mg PO BID PRN 06/28/18 06/28/18 MG] Tramadol HCl [Ultram] 50 mg PO BID PRN 06/28/18 06/28/18 Albuterol Neb [AccuNeb] 1.25 mg IH Q6H 07/12/18 07/12/18 Allergies Allergy/AdvReac Type Severity Reaction Status Date / Time No Known Allergies Allergy Verified 06/28/18 10:17 Constitutional: Reports: fever, chills Cardiovascular: Reports: dyspnea on exertion. Denies: chest pain, palpitations, orthopnea, edema, syncope, paroxysmal nocturnal dyspnea Respiratory: Reports: cough, dyspnea, wheezes, sputum production. Denies: hemoptysis, stridor Gastrointestinal: Reports: nausea. Denies: abdominal pain, vomiting, diarrhea Genitourinary: Denies: urgency, dysuria Musculoskeletal: Denies: back pain, neck pain Integumentary: Denies: rash Past Medical History - Past Medical History Medical history: Reports: arthritis, cancer, COPD, hypertension Surgical history: Reports: appendectomy, cholecystectomy, other Psychiatric history: Reports: no psych history - Social History Smoking Status: Current every day smoker Smokeless Tobacco Status: No Alcohol use: Reports: none Drug use: Reports: none Physical Exam - General Limitations: no limitations General appearance: alert, in no apparent distress Course Vital Signs Temperature 98.7 F 07/12/18 08:12 Pulse Rate 110 07/12/18 08:12 Respiratory Rate 18 07/12/18 08:12 Blood Pressure 112/70 07/12/18 08:12 O2 Sat by Pulse Oximetry 94 07/12/18 08:12 Temperature 98.9 F 07/12/18 11:08 Pulse Rate 91 07/12/18 11:08 Respiratory Rate 20 07/12/18 11:08 Blood Pressure 116/68 07/12/18 11:08 O2 Sat by Pulse Oximetry 92 07/12/18 11:08 Oxygen Delivery Oxygen Delivery Room Air Medical Decision Making - Lab Data Result diagrams: 07/12/18 09:26 07/12/18 09:26 Lab Results 07/12/18 07/12/18 07/12/18 Range/Units 09:26 09:26 09:26 WBC 15.9 H (4.3-11.1) K/mcL RBC 2.82 L (4.19-5.50) M/mcL Hgb 9.2 L (12.9-16.9) g/dL Hct 26.9 L (37.5-50.1) % MCV 95.4 (83.0-100.0) fL MCH 32.6 (28.0-33.3) pg MCHC 34.2 (31.6-35.5) g/dL RDW 13.9 (11.5-14.5) % Plt Count 423 H (140-400) K/mcL MPV 11.2 (9.4-12.4) fL Immature Gran % 1.6 (0-4) % Seg Neutrophils % 82.6 % Lymphocytes % 3.9 % Monocytes % 11.4 % Eosinophils % 0.2 % Basophils % 0.3 % Neutrophils # 13.1 H (1.6-8.9) K/mcL Lymphocytes # 0.6 (0.6-4.6) K/mcL Monocytes # 1.8 H (0.0-1.3) K/mcL Eosinophils # 0.0 (0.0-0.6) K/mcL Basophils # 0.0 (0.0-0.2) K/mcL Sodium 128 L (136-145) mEq/L Potassium 3.8 (3.5-5.1) mEq/L Chloride 90 L (98-107) mEq/L Carbon Dioxide 30 H (23-29) mEq/L BUN 7 (6-20) mg/dL Creatinine 0.52 L (0.70-1.30) mg/dL Est GFR ( Amer) > 60 (> 60) Est GFR (Non-Af Amer) > 60 (> 60) BUN/Creatinine Ratio 13 (6-26) Glucose 114 H (70-105) mg/dL Calculated Osmolality 265 L (280-300) Lactic Acid 1.2 (0.5-2.2) mmol/L Calcium 9.2 (8.6-10.3) mg/dL Troponin I < 0.03 (< 0.04) ng/mL Critical Care Time Critical Care Time: Yes Total Critical Care Time: 45 Attestation: Critical care performed: Time is exclusive of separately billable procedures. Time includes: direct patient care, patient reassessment, coordination of patient care, interpretation of data (laboratory data, radiology data, and respiratory data), review of patient's medical records, medical consultation and documentation of patient care. Procedures included in critical care time: Procedures excluded from critical care time: Attestation Statement - Attestation Attestation: I examined this patient and my medical decision-making was reviewed with the Resident Physician. I agree with the documented findings, disposition and tr eatment plan as described except to the extent set forth below. Patient presents to the ED with a chief complaint of an elevated white blood cell count. Patient has not been feeling well for the past 5 days. Fevers and nausea. Coughing productive of green phlegm. The patient is also status post left hip replacement on the sixth of this month. He saw his orthopedic last week who thought his incisions look good. They recommended to follow up with his PCP to discuss his other symptoms. They ordered some outpatient labs that showed a white blood cell count of 23 with a 20% bandemia and he was told to come to the ED for evaluation. On examination he is in no acute distress. We did examine his to incisions on his hip. They are without erythema or drainage. His abdomen is soft. He does have some drainage around his G-tube site, but family states this is from a cream they put on it. His lungs have end expiratory wheezing. Plan. Septic workup. It appears that pneumonia is the most likely source of his infection. We will x-ray his hip as well. Patient will be begun on IV antibiotics and admitted to the hospital. Patient with a right upper lobe pneumonia. The hip does not appear acutely infected. He is receiving IV antibiotics. White blood cell count of 15,000. He will meet sepsis criteria without shock. Admitted to medicine. Chest X-Ray 07/12/18 08:45 IMPRESSION: 1. Right upper lobe pneumonia. Follow-up to resolution is recommended. 2. COPD. D/ / Viktor Sweeney MD / Viktor Sweeney MD Interpreting Provider: Viktor Sweeney MD Hip X-Ray 07/12/18 08:46 IMPRESSION: 1. Left hip arthroplasty with no acute abnormality. D/ / Viktor Sweeney MD / Viktor Sweeney MD Interpreting Provider: Viktor Sweeney MD
[2018-07-12] MEDS ORDERED: Piperacillin/Tazobactam 3.375 GM in 0.9 % Sodium Chloride Mini Bag 100 ML IVPB ONE (09:07)
[2018-07-12] MEDS ORDERED: Azithromycin 500 MG in D5% in Water 250 ML IVPB ONE (09:31)
[2018-07-12 09:44] LABS: Basophils % 0.3 %; Eosinophils % 0.2 %; Hematocrit 26.9 % (37.5-50.1); Hemoglobin 9.2 g/dL (12.9-16.9); Immature Granulocytes % 1.6 % (0-4); Lymphocytes # 0.6 K/mcL (0.6-4.6); Lymphocytes % 3.9 %; Mean Corpuscular HGB Conc 34.2 g/dL (31.6-35.5); Mean Corpuscular Hemoglobin 32.6 pg (28.0-33.3); Mean Corpuscular Volume 95.4 fL (83.0-100.0); Mean Platelet Volume 11.2 fL (9.4-12.4); Monocytes # 1.8 K/mcL (0.0-1.3); Monocytes % 11.4 %; Neutrophils # 13.1 K/mcL (1.6-8.9); Platelet Count 423 K/mcL (140-400); Red Blood Count 2.82 M/mcL (4.19-5.50); Red Cell Distribution Width 13.9 % (11.5-14.5); Segmented Neutrophils % 82.6 %
[2018-07-12] MEDS ORDERED: 0.9 % Sodium Chloride 500 ML IVC STA (09:51)
[2018-07-12 10:03] LABS: BUN/Creatinine Ratio 13 (6-26); Blood Urea Nitrogen 7 mg/dL (6-20); Calcium 9.2 mg/dL (8.6-10.3); Carbon Dioxide 30 mEq/L (23-29); Chloride 90 mEq/L (98-107); Glucose 114 mg/dL (70-105); Osmolality,Calculated 265 (280-300); Potassium 3.8 mEq/L (3.5-5.1); Sodium 128 mEq/L (136-145); eGFR For Non-African Americans > 60 (> 60)
[2018-07-12 10:29] LABS: Troponin I < 0.03 ng/mL (< 0.04)
[2018-07-12] MEDS ORDERED: *HR* OxyCODONE ER (12 HR) 10 MG TABLET PO STA (10:32)
[2018-07-12] MEDS ORDERED: Acetaminophen 325 MG TABLET PO PRN (11:28)
[2018-07-12] MEDS ORDERED: Ondansetron 4 MG/2 ML VIAL IVP PRN (11:28)
[2018-07-12] MEDS ORDERED: Naloxone 0.4 MG/ML INJ IVP PRN (11:28)
--- NOTE | 2018-07-12 11:47 | Internal Med History&Physical ---
<Raleigh Fofana - Last Filed: 07/12/18 17:40> Date of Encounter: 07/12/18 Time of Encounter: 11:47 Internal Medicine - H&P: HPI Chief complaint: Shortness of breath Admitted From: Emergency Dept History of present illness: Mr. Bass is a 57 year old male with a past medical history of COPD, hypertension, anemia, tonsillar cancer, and current PEG tube who presented to the ED complaining of shortness of breath, fever, chills, green sputum production, nausea, vomiting, and dizziness for the past 4 days. Patient states temperature was 102 F at home. Patient was evaluated by his PCP and told to go to the ED given laboratory abnormalities leukocytosis WBC 23.9 and hyponatremia Na 128. He is on Jevity x 5 per day for nutritional support but still able to eat food by mouth as tolerated. Patient denies any aspiration, recent illness, sick contacts, or signs of infection at his left hip or PEG tube sites. Patient had a robotic assisted total left hip replacement on 06/28/18 and is on Oxycodone 10 mg as needed. In the ED labs revealed leukocytosis WBC 15.9, hemoglobin 9.2, sodium 128, chloride 90, CO2 30, BUN 7, creatinine 0.52, and lactic acid 1.2--> 0.7. CXR revealed right upper lobe pneumonia and COPD. Patient was started on empiric Vancomycin and Zosyn. Past Med Surg Social Fam HX - Past Medical History Medical history: arthritis, cancer, COPD, hypertension Additional medical history: wasting disease, L tonsillar CA, throat CA Psychiatric history: no psych history - Past Surgical History Surgical History: appendectomy, cholecystectomy, other Additional surgical history: ERCP. feeding tube - Social History Smoking Status: Current every day smoker Smokeless Tobacco Status: No Alcohol use: none Drug use: none Current living situation: Home, With Family - Family History Brother Hx Family Endocrine Disorder: Yes (DM) Mother Hx Family Cardiac Disorders: No Father Hx Family Cardiac Disorders: No Internal Medicine - H&P: Meds Albuterol Sulfate [Albuterol Inhaler] 2 puff PO Q6H PRN 06/28/18 [History] Dronabinol [Marinol] 5 mg PO BID 06/28/18 [History] Ergocalciferol (VITAMIN D2) [Vitamin D2] 50,000 units PO MO 06/28/18 [History] Ondansetron HCl 4 mg PO Q8H PRN 06/28/18 [History] OxyCODONE Immed Rel [Roxicodone 10 MG] 10 mg PO Q4-6H PRN 06/28/18 [History] Tramadol HCl [Ultram] 50 mg PO Q6H PRN 06/28/18 [History] Albuterol Neb [AccuNeb] 1.25 mg IH Q6H 07/12/18 [History] Aspirin Enteric Coated [Aspirin EC] 325 mg PO BID 07/12/18 [History] Cyclobenzaprine HCl 5 - 10 mg PO Q8H PRN 07/12/18 [History] Ibuprofen 800 mg PO TID PRN 07/12/18 [History] Multivit-Min/FA/Lycopen/Lutein [Men 50 Plus Multivitamin Tab] 1 tab PO DAILY [History] NALOXONE 4 MG Nasal [place] [Narcan] 1 - 2 spray NS AD PRN 07/12/18 [History] Allergy/AdvReac Type Severity Reaction Status Date / Time No Known Allergies Allergy Verified 07/12/18 17:59 All Systems PM: A 10-system review of systems was performed and is negative for pertinent findings except as documented above in the HPI. - Constitutional Constitutional: anorexia, chills, fatigue, fever(s), lethargy, weakness - EENT Eyes: no blurry vision, no diplopia Nose, mouth and throat: no sinus pain, no sore throat - Cardiovascular Cardiovascular ROS IM: dyspnea, no chest pain, no edema - Respiratory Respiratory: cough, dyspnea, wheezing, excessive phlegm production, change in phlegm color - Gastrointestinal Gastrointestinal: nausea, vomiting, no abdominal pain, no diarrhea - Genitourinary Genitourinary ROS male: no difficulty urinating, no urinary frequency, no urinary urgency - Musculoskeletal Musculoskeletal ROS IM: no numbness, no tingling - Integumentary Integumentary IM: no erythema, no rash - Neurological Neurological ROS: weakness, no numbness, no tingling - Psychiatric Psychiatric: no anxiety, no depression - Endocrine Endocrine IM: no polydipsia, no polyphagia, no polyuria - Constitutional Vitals: Temp Pulse Resp BP Pulse Ox 98.9 F 91 20 116/68 92 07/12/18 11:08 07/12/18 11:08 07/12/18 11:08 07/12/18 11:08 07/12/18 11:08 General appearance: Present: cooperative, A&O X 3, pleasant, no acute distress, answers questions appropriately Exam: awake - Head Head exam: Present: atraumatic, normocephalic - Eye Eye exam: Present: EOMI, conjuntiva pink, sclera anicteric - ENT ENT exam: Present: mucous membranes dry, normal oropharynx - Neck Neck exam general surgery: Present: supple, trachea midline. Absent: lymphadenopathy - Respiratory Respiratory exam: Present: wheezes. Absent: accessory muscle use, rales, respiratory distress, rhonchi - Cardiovascular Cardiovascular exam: Present: RRR, +S1, +S2, tachycardia. Absent: diastolic murmur, gallop, rubs, systolic murmur - GI/Abdominal GI/Abdominal exam: Present: normal bowel sounds, soft, no peritoneal signs. Absent: distended, tenderness (PEG tube in place left upper quadrant, mild erythema with ointment at dressing site) - Extremities Exam Extremities exam: Present: warm, radial pulses palpable and symmetrical. Absent: calf tenderness, cyanotic, pedal edema - Back Exam Back exam: Present: normal inspection. Absent: paraspinal tenderness, tenderness - Neurological Exam Neurological exam: Present: alert, CN II-XII intact, oriented X3, no focal deficits. Absent: facial droop, speech deficit - Psychiatric Psychiatric exam: Present: normal affect, normal mood - Skin Skin exam: Present: dry, intact, normal color, warm Internal Med - H&P Results - Labs CBC & Chem 7: 07/12/18 09:26 07/12/18 09:26 Labs: Short CBC 07/12/18 Range/Units 09:26 WBC 15.9 H (4.3-11.1) K/mcL Hgb 9.2 L (12.9-16.9) g/dL Hct 26.9 L (37.5-50.1) % Plt Count 423 H (140-400) K/mcL Neutrophils # 13.1 H (1.6-8.9) K/mcL BMP 07/12/18 09:26 Sodium 128 L Potassium 3.8 Chloride 90 L Carbon Dioxide 30 H BUN 7 Creatinine 0.52 L Glucose 114 H Calcium 9.2 Cardiac Enzymes 07/12/18 Range/Units 09:26 Troponin I < 0.03 (< 0.04) ng/mL - Pulse Oximetry Interpretation Digit-Finger O2 Sat by Pulse Oximetry: 91 (On ambient air) Actions taken: none - EKG Data -: EKG Interpreted by Myself EKG shows normal: sinus rhythm (Heart rate 85, normal sinus rhythm, no signs of ischemia) - EKG Data When compared to previous EKG: there is no significant change - Impressions ITS Impressions Chest X-Ray 07/12/18 08:45 IMPRESSION: 1. Right upper lobe pneumonia. Follow-up to resolution is recommended. 2. COPD. D/ / Viktor Sweeney MD / Viktor Sweeney MD Interpreting Provider: Viktor Sweeney MD Hip X-Ray 07/12/18 08:46 IMPRESSION: 1. Left hip arthroplasty with no acute abnormality. D/ / Viktor Sweeney MD / Viktor Sweeney MD Interpreting Provider: Viktor Sweeney MD - Assessment and Plan (1) Hyponatremia Current Visit: Yes Status: Acute Assessment and plan: Sodium level 128, baseline level 133 Likely due to volume depletion, pneumonia, Jevity Continue IV fluids. Continue monitoring (2) Hypomagnesemia Current Visit: Yes Status: Acute Assessment and plan: Magnesium level 1.5 Supplement magnesium Continue monitoring (3) Anemia Current Visit: Yes Status: Acute Assessment and plan: Hemoglobin 9.2, baseline hemoglobin 12. No signs of bleeding Iron studies, B12, folate level pending Continue monitoring Qualifiers: Anemia type: unspecified type Qualified Code(s): D64.9 - Anemia, unspecified (4) COPD (chronic obstructive pulmonary disease) Current Visit: No Status: Chronic Assessment and plan: Continue antibiotics and bronchodilators. Consider adding steroids if not improving. Qualifiers: COPD type: unspecified COPD Qualified Code(s): J44.9 - Chronic obstructive pulmonary disease, unspecified (5) History of throat cancer Current Visit: No Status: Chronic Assessment and plan: Patient with remote history of tonsillar cancer status post XRT. Continue monitoring. (6) PEG (percutaneous endoscopic gastrostomy) status Current Visit: Yes Status: Chronic Assessment and plan: Left upper quadrant PEG tube in place with mild erythema. Wound culture pending. Wound care consulted (7) Status post total hip replacement, left Current Visit: No Status: Acute Assessment and plan: Patient status post left hip replacement 06/28/18. No signs of infection. X-ray: left hip arthroplasty with no acute abnormality. Continue monitoring (8) Tobacco dependence Current Visit: Yes Status: Chronic Assessment and plan: Tobacco cessation discussed. Nicotine patch ordered. (9) HTN (hypertension) Current Visit: No Status: Chronic Assessment and plan: Blood pressure stable. Continue monitoring. Qualifiers: Hypertension type: unspecified Qualified Code(s): I10 - Essential (primary) hypertension (10) DVT prophylaxis Current Visit: Yes Status: Acute Assessment and plan: Heparin subcutaneous TID (11) HCAP (healthcare-associated pneumonia) Current Visit: Yes Status: Acute Assessment and plan: 57-year-old male with history of throat cancer and PEG tube presents with SOB, fever, chills, productive cough, and recent hospitalization 06/28/18 for left hip replacement. CXR revealed right upper lobe pneumonia and COPD. Blood culture pending. Sputum culture pending, Legionella and strep pneumo antigens pending, MRSA nasal swab pending De-escalate antibiotics based on culture results Continue bronchodilators. Encourage incentive spirometry - Time Spent With Patient Total time spent is greater than 50% in coordination of care (as documented) at patient's floor/unit and/or counseling patient: <RanjitmaryChayito Fernandez - Last Filed: 07/13/18 11:12> Date of Encounter: 07/12/18 Internal Medicine - H&P: HPI History of present illness: Mr. Bass is a 57 year old male All Systems PM: A 10-system review of systems was performed and is negative for pertinent findings except as documented above in the HPI. - Constitutional Vitals: Temp Pulse Resp BP Pulse Ox 97.7 F 85 20 117/67 94 07/13/18 10:55 07/13/18 10:55 07/13/18 10:59 07/13/18 10:55 07/13/18 10:59 Internal Med - H&P Results - Labs CBC & Chem 7: 07/13/18 06:51 07/13/18 06:51 Labs: Short CBC 07/13/18 Range/Units 06:51 WBC 9.5 (4.3-11.1) K/mcL Hgb 8.4 L (12.9-16.9) g/dL Hct 24.0 L (37.5-50.1) % Plt Count 421 H (140-400) K/mcL Neutrophils # 7.3 (1.6-8.9) K/mcL BMP 07/13/18 06:51 Sodium 134 L Potassium 3.3 L Chloride 100 Carbon Dioxide 25 BUN 5 L Creatinine 0.44 L Glucose 109 H Calcium 8.7 Liver Function 07/13/18 Range/Units 06:51 Total Bilirubin 0.5 (0.3-1.0) mg/dL AST 33 (13-39) Units/L ALT 34 (7-52) Units/L Alkaline Phosphatase 107 H (34-104) Units/L Albumin 3.1 L (3.5-5.7) g/dL - Impressions ITS Impressions Chest X-Ray 07/12/18 08:45 IMPRESSION: 1. Right upper lobe pneumonia. Follow-up to resolution is recommended. 2. COPD. D/ / Viktor Sweeney MD / Viktor Sweeney MD Interpreting Provider: Viktor Sweeney MD Hip X-Ray 07/12/18 08:46 IMPRESSION: 1. Left hip arthroplasty with no acute abnormality. D/ / Viktor Sweeney MD / Viktor Sweeney MD Interpreting Provider: Viktor Sweeney MD - Assessment and Plan (1) Status post total hip replacement, left Current Visit: No Status: Acute (2) COPD (chronic obstructive pulmonary disease) Current Visit: No Status: Chronic Qualifiers: COPD type: unspecified COPD Qualified Code(s): J44.9 - Chronic obstructive pulmonary disease, unspecified (3) Tobacco dependence Current Visit: Yes Status: Chronic (4) HTN (hypertension) Current Visit: No Status: Chronic Qualifiers: Hypertension type: unspecified Qualified Code(s): I10 - Essential (primary) hypertension (5) PEG (percutaneous endoscopic gastrostomy) status Current Visit: Yes Status: Chronic (6) History of throat cancer Current Visit: No Status: Chronic (7) Hyponatremia Current Visit: Yes Status: Acute (8) Anemia Current Visit: Yes Status: Acute Qualifiers: Anemia type: unspecified type Qualified Code(s): D64.9 - Anemia, unspecified (9) Hypomagnesemia Current Visit: Yes Status: Acute (10) DVT prophylaxis Current Visit: Yes Status: Acute (11) HCAP (healthcare-associated pneumonia) Current Visit: Yes Status: Acute - Time Spent With Patient Total time spent is greater than 50% in coordination of care (as documented) at patient's floor/unit and/or counseling patient: - Attending Attestation I personally and independently interviewed and examined the patient, and I reviewed the patient's medical records. I am in agreement with the assessment and proposed treatment plan. I discussed my findings and recommendation with the patient and answer his questions. The patient's medical records were edited to accurately reflect this encounter.
[2018-07-12] MEDS: Nicotine 14 MG PATCH.TD24 TD SCH (12:47)
[2018-07-12] MEDS: Levofloxacin 750 MG/150 ML 750 MG/150 ML BAG IVPB SCH (12:48)
[2018-07-12] MEDS ORDERED: Aminoglycoside Consult 1 EACH MC ONE (12:59)
[2018-07-12] MEDS: 0.9 % Sodium Chloride 1,000 ML IVC SCH (13:11)
[2018-07-12 13:52] LABS: Magnesium 1.5 mg/dL (1.6-2.6); Phosphorous 2.6 mg/dL (2.7-4.5)
[2018-07-12] MEDS: Ipratropium/Albuterol Neb 3 ML IH SCH ×4 (15:24→23:59)
[2018-07-12] MEDS: Piperacillin/Tazobactam 3.375 GM in 0.9 % Sodium Chloride Mini Bag 100 ML IVPB SCH ×2 (16:27→23:21)
[2018-07-12] MEDS: *HR* Heparin 5,000 UNIT/ML VIAL SQ SCH ×2 (16:28→23:23)
[2018-07-12] MEDS: Aspirin Enteric Coated 325 MG Tablet PO SCH (20:09)
[2018-07-13] MEDS: 0.9 % Sodium Chloride 1,000 ML IVC SCH (03:33)
[2018-07-13] MEDS: traMADol 50 MG TABLET PO PRN (03:39)
[2018-07-13] MEDS: Ipratropium/Albuterol Neb 3 ML IH SCH ×6 (03:45→23:45)
[2018-07-13] MEDS: *HR* Heparin 5,000 UNIT/ML VIAL SQ SCH ×3 (05:43→20:45)
[2018-07-13 07:05] LABS: Basophils # 0.1 K/mcL (0.0-0.2); Basophils % 0.6 %; Eosinophils % 0.3 %; Hemoglobin 8.4 g/dL (12.9-16.9); Lymphocytes # 0.7 K/mcL (0.6-4.6); Lymphocytes % 6.9 %; Mean Corpuscular Hemoglobin 33.5 pg (28.0-33.3); Mean Corpuscular Volume 95.6 fL (83.0-100.0); Mean Platelet Volume 10.9 fL (9.4-12.4); Monocytes # 1.3 K/mcL (0.0-1.3); Monocytes % 13.2 %; Neutrophils # 7.3 K/mcL (1.6-8.9); Platelet Count 421 K/mcL (140-400); Red Blood Count 2.51 M/mcL (4.19-5.50); Red Cell Distribution Width 14.1 % (11.5-14.5)
[2018-07-13 07:47] LABS: Folate 17.8 ng/mL (3.0-16.0)
[2018-07-13] MEDS: Aspirin Enteric Coated 325 MG Tablet PO SCH ×2 (07:48→20:44)
[2018-07-13] MEDS: Nicotine 14 MG PATCH.TD24 TD SCH (07:48)
[2018-07-13] MEDS: Piperacillin/Tazobactam 3.375 GM in 0.9 % Sodium Chloride Mini Bag 100 ML IVPB SCH ×2 (07:49→16:02)
[2018-07-13] MEDS: Levofloxacin 750 MG/150 ML 750 MG/150 ML BAG IVPB SCH (07:49)
[2018-07-13 10:17] LABS: Alanine Aminotransferase 34 Units/L (7-52); Albumin 3.1 g/dL (3.5-5.7); Albumin/Globulin Ratio 1.2 (1.1-2.2); Alkaline Phosphatase 107 Units/L (34-104); Aspartate Amino Transferase 33 Units/L (13-39); BUN/Creatinine Ratio 11 (6-26); Bilirubin,Total 0.5 mg/dL (0.3-1.0); Blood Urea Nitrogen 5 mg/dL (6-20); Calcium 8.7 mg/dL (8.6-10.3); Carbon Dioxide 25 mEq/L (23-29); Chloride 100 mEq/L (98-107); Globulin 2.6 g/dL (2.4-3.5); Glucose 109 mg/dL (70-105); Iron < 10 mcg/dL (65-175); Magnesium 1.8 mg/dL (1.6-2.6); Osmolality,Calculated 276 (280-300); Potassium 3.3 mEq/L (3.5-5.1); Sodium 134 mEq/L (136-145); Total Protein 5.7 g/dL (6.4-8.9); Transferrin 118 mg/dL (203-362); eGFR For Non-African Americans > 60 (> 60)
[2018-07-13 10:34] LABS: Vitamin B12 > 1500 pg/mL (250-1100)
[2018-07-13] MEDS: *HR* OxyCODONE Immed Rel 5 MG TABLET PO PRN (11:52)
[2018-07-13] MEDS ORDERED: Potassium Chloride Elixir 20 MEQ/15 ML UDC GTUBE ONE (12:35)
--- NOTE | 2018-07-13 12:37 | Internal Med Progress Note ---
Hospitalist Progress Note - Encounter Date of Encounter: 07/13/18 Time of Encounter: 12:36 - Subjective Interval History: I have seen and evaluated the patient bedside. Patient reports feeling better, reports productive cough of yellow sputum, denies shortness of breath, nausea or vomiting. denies chest pain. - Exam Vitals: Temp Pulse Resp BP Pulse Ox 97.7 F 85 20 117/67 94 07/13/18 10:55 07/13/18 10:55 07/13/18 10:59 07/13/18 10:55 07/13/18 10:59 Exam: Vitals: Reviewed General: Alert and oriented x4. In no acute distress Skin: Normal color, no rash, no lesions. HEENT: EOM, pupils equal, round and reactive. Cardiovascular: RRR, normal S1 & S2, no rubs, murmurs or gallops. No JVD. Pulse regular. Lungs: CTA b/l, no wheezes or crackles. Abdomen: Soft, non-tender, no rigidity. PEG tube intact. Extremities: No deformity, no edema or tenderness, no joint swelling or clubbing. Neurological: Normal cognition and motor skills. Pulses:Carotid and radial pulses normal +2. Rest of the physical exam is non contributory - Assessment and Plan (1) HCAP (healthcare-associated pneumonia) Current Visit: Yes Status: Acute Assessment and Plan: patient recently hospitalized total for left total hp replacement. sputum culture: ordered, pending report urine negative for atypical organism discontinue levofloxacin continue piperacillin/tazobactam 3.375mg/IV Q8HRs. (2) Status post total hip replacement, left Current Visit: No Status: Acute Assessment and Plan: PT/OT. Pain management with Oxycodone 10mg/PO BID. continue docusate (3) COPD (chronic obstructive pulmonary disease) Current Visit: No Status: Chronic Assessment and Plan: patient not on acute exacerbation. chest is clear to auscultation. continue bronchodilators Q4RT. (4) Tobacco dependence Current Visit: Yes Status: Chronic (5) HTN (hypertension) Current Visit: No Status: Chronic Assessment and Plan: BP well controlled off anti hypertensive medications. will continue to monitor. (6) PEG (percutaneous endoscopic gastrostomy) status Current Visit: Yes Status: Chronic (7) History of throat cancer Current Visit: No Status: Chronic (8) Hyponatremia Current Visit: Yes Status: Resolved (9) Anemia Current Visit: Yes Status: Chronic Assessment and Plan: will add ferrous sulfate 325mg/PO BID. (10) Hypomagnesemia Current Visit: Yes Status: Resolved DVT Prophylaxis: On heparin subQ - Summary of Assessment and Plan Summary of Assessment and Plan: Patient to remain in the hospital due to HCAP on broad spectrum IV antibiotics. potential discharge tomorrow - Time Spent with Patient Total time spent is greater than 50% in coordination of care (as documented) at patient's floor/unit and/or counseling patient: Greater than 35 minutes (40) Plan of Care Discussed with: patient (and the nurse.) Internal Medicine: Result - Labs CBC & Chem 7: 07/13/18 06:51 07/13/18 06:51 Labs: Short CBC 07/13/18 Range/Units 06:51 WBC 9.5 (4.3-11.1) K/mcL Hgb 8.4 L (12.9-16.9) g/dL Hct 24.0 L (37.5-50.1) % Plt Count 421 H (140-400) K/mcL Neutrophils # 7.3 (1.6-8.9) K/mcL BMP 07/13/18 06:51 Sodium 134 L Potassium 3.3 L Chloride 100 Carbon Dioxide 25 BUN 5 L Creatinine 0.44 L Glucose 109 H Calcium 8.7 Liver Function 07/13/18 Range/Units 06:51 Total Bilirubin 0.5 (0.3-1.0) mg/dL AST 33 (13-39) Units/L ALT 34 (7-52) Units/L Alkaline Phosphatase 107 H (34-104) Units/L Albumin 3.1 L (3.5-5.7) g/dL Consult Discharge Plan - Plan Referrals: Jimmy Byers MD [Primary Care Provider] - (3) COPD (chronic obstructive pulmonary disease) Qualifiers: COPD type: unspecified COPD Qualified Code(s): J44.9 - Chronic obstructive pulmonary disease, unspecified (5) HTN (hypertension) Qualifiers: Hypertension type: unspecified Qualified Code(s): I10 - Essential (primary) hypertension (9) Anemia Qualifiers: Anemia type: unspecified type Qualified Code(s): D64.9 - Anemia, unspecified
[2018-07-14] MEDS: Ipratropium/Albuterol Neb 3 ML IH SCH ×2 (03:54→07:34)
[2018-07-14] MEDS: *HR* Heparin 5,000 UNIT/ML VIAL SQ SCH ×3 (05:01→21:27)
[2018-07-14] MEDS: *HR* OxyCODONE Immed Rel 5 MG TABLET PO PRN ×2 (05:06→17:09)
[2018-07-14] MEDS: Aspirin Enteric Coated 325 MG Tablet PO SCH ×2 (07:47→21:27)
[2018-07-14] MEDS: Nicotine 14 MG PATCH.TD24 TD SCH (07:48)
[2018-07-14] MEDS: Piperacillin/Tazobactam 3.375 GM in 0.9 % Sodium Chloride Mini Bag 100 ML IVPB SCH ×3 (07:48→14:58)
[2018-07-14] MEDS ORDERED: Potassium Chloride Elixir 20 MEQ/15 ML UDC GTUBE ONE (09:14)
[2018-07-14] MEDS ORDERED: Ipratropium/Albuterol Neb 3 ML IH PRN (09:36)
[2018-07-14] MEDS: traMADol 50 MG TABLET PO PRN (12:15)
--- NOTE | 2018-07-14 14:27 | Internal Med Progress Note ---
Hospitalist Progress Note - Encounter Date of Encounter: 07/14/18 Time of Encounter: 14:24 - Subjective Interval History: Patient seen and examined earlier today. Resting in bed and saturating well on room air. States he feels significant improvement in his breathing compared to previous day. Denies any fever or chills. Slowly able to get out of bed to chair. No cough reported. States he does get short of breath with ambulation No overnight events reported Ten point ROS is negative except as listed above - Exam Vitals: Temp Pulse Resp BP Pulse Ox 97.9 F 90 17 120/74 92 07/14/18 11:02 07/14/18 11:02 07/14/18 11:02 07/14/18 11:02 07/14/18 11:02 Exam: Vitals: Reviewed General: Alert and oriented x3. In no acute distress Skin: Normal color, no rash, no lesions. HEENT: EOMI, pupils equal, round and reactive. Cardiovascular: RRR, normal S1 & S2, no rubs, murmurs or gallops. No JVD. Pulse regular. Lungs: Decreased breath sounds, no wheezing, no rales Abdomen: Soft, non-tender, no rigidity. PEG tube intact. Extremities: No deformity, no edema or tenderness, no joint swelling or clubbing. Neurological: Normal cognition and motor skills. Pulses:Carotid and radial pulses normal +2. Rest of the physical exam is non contributory - Assessment and Plan (1) HCAP (healthcare-associated pneumonia) Current Visit: Yes Status: Acute Assessment and Plan: continue IV Zosyn (day 3/5) awaiting blood and sputum cultures (2) Status post total hip replacement, left Current Visit: No Status: Acute Assessment and Plan: Pain management with Oxycodone 10mg PO BID. continue docusate Pt has home health services for PT (3) COPD (chronic obstructive pulmonary disease) Current Visit: No Status: Chronic Assessment and Plan: patient not on acute exacerbation. continue bronchodilator support as needed (4) Tobacco dependence Current Visit: Yes Status: Chronic Assessment and Plan: Smoking cessation counseling provided (5) HTN (hypertension) Current Visit: No Status: Chronic Assessment and Plan: BP within acceptable range continue current management closely monitor BP (6) PEG (percutaneous endoscopic gastrostomy) status Current Visit: Yes Status: Chronic Assessment and Plan: Left upper quadrant PEG tube in place Wound culture negative continue supportive care (7) History of throat cancer Current Visit: No Status: Chronic (8) Hyponatremia Current Visit: Yes Status: Resolved Assessment and Plan: Sodium level 134 Likely due to volume depletion, pneumonia, Jevity d/c IV fluids Continue monitoring (9) Anemia Current Visit: Yes Status: Chronic Assessment and Plan: started on iron supplementation H&H low but acceptable no acute bleeding reported continue to monitor (10) Hypomagnesemia Current Visit: Yes Status: Resolved (11) Hypokalemia Current Visit: Yes Status: Acute Assessment and Plan: K supplemented continue to monitor electrolytes and replace as needed DVT Prophylaxis: Heparin sQ - Time Spent with Patient Total time spent is greater than 50% in coordination of care (as documented) at patient's floor/unit and/or counseling patient: 25 - 35 minutes Plan of Care Discussed with: patient (patient/RN/pharmacist/case management) Internal Medicine: Result - Labs CBC & Chem 7: 07/13/18 06:51 07/13/18 06:51 Consult Discharge Plan - Plan Referrals: Jimmy Byers MD [Primary Care Provider] - (3) COPD (chronic obstructive pulmonary disease) Qualifiers: COPD type: unspecified COPD Qualified Code(s): J44.9 - Chronic obstructive pulmonary disease, unspecified (5) HTN (hypertension) Qualifiers: Hypertension type: unspecified Qualified Code(s): I10 - Essential (primary) hypertension (9) Anemia Qualifiers: Anemia type: unspecified type Qualified Code(s): D64.9 - Anemia, unspecified
[2018-07-15] MEDS: Piperacillin/Tazobactam 3.375 GM in 0.9 % Sodium Chloride Mini Bag 100 ML IVPB SCH ×2 (00:17→07:57)
[2018-07-15 05:14] LABS: Eosinophils # 0.3 K/mcL (0.0-0.6); Hematocrit 26.9 % (37.5-50.1); Hemoglobin 9.1 g/dL (12.9-16.9); Mean Corpuscular HGB Conc 33.8 g/dL (31.6-35.5); Mean Corpuscular Hemoglobin 32.5 pg (28.0-33.3); Mean Corpuscular Volume 96.1 fL (83.0-100.0); Mean Platelet Volume 10.9 fL (9.4-12.4); Platelet Count 578 K/mcL (140-400); Red Cell Distribution Width 14.1 % (11.5-14.5)
[2018-07-15 05:35] LABS: BUN/Creatinine Ratio 11 (6-26); Blood Urea Nitrogen 5 mg/dL (6-20); Calcium 8.6 mg/dL (8.6-10.3); Carbon Dioxide 23 mEq/L (23-29); Chloride 101 mEq/L (98-107); Glucose 94 mg/dL (70-105); Magnesium 1.7 mg/dL (1.6-2.6); Osmolality,Calculated 271 (280-300); Potassium 3.8 mEq/L (3.5-5.1); Sodium 132 mEq/L (136-145); eGFR For Non-African Americans > 60 (> 60)
[2018-07-15 05:47] LABS: Basophils # 0.2 K/mcL (0.0-0.2); Neutrophils # 4.7 K/mcL (1.6-8.9)
[2018-07-15 05:48] LABS: Large Platelets Present (Not Present); Platelet Estimate Increased (Normal); Reactive Lymphocytes Present (Not Present)
[2018-07-15] MEDS: *HR* Heparin 5,000 UNIT/ML VIAL SQ SCH (06:20)
[2018-07-15] MEDS: traMADol 50 MG TABLET PO PRN (06:22)
[2018-07-15] MEDS: Nicotine 14 MG PATCH.TD24 TD SCH (07:57)
[2018-07-15] MEDS: Aspirin Enteric Coated 325 MG Tablet PO SCH (07:57)
[2018-07-15] MEDS ORDERED: Levofloxacin 750 MG/150 ML 750 MG/150 ML BAG IVPB SCH ×2 (10:00→16:00)
[2018-07-15] MEDS ORDERED: levoFLOXacin 750 MG TABLET PO SCH (11:00)
[2018-07-15 11:38] VITALS: BP 118/73
--- NOTE | 2018-07-15 11:44 | Physician Discharge Referral ---
Home Health/Hosp Referral Info Transfer to: Home Health Provider in Charge Post Discharge: PCP - Diagnosis (1) HCAP (healthcare-associated pneumonia) Priority: Primary Status: Acute (2) Status post total hip replacement, left Priority: Secondary Status: Chronic (3) COPD (chronic obstructive pulmonary disease) Priority: Secondary Status: Chronic (4) Tobacco dependence Priority: Secondary Status: Chronic (5) HTN (hypertension) Priority: Secondary Status: Chronic (6) PEG (percutaneous endoscopic gastrostomy) status Priority: Secondary Status: Chronic (7) History of throat cancer Priority: Secondary Status: Chronic (8) Hyponatremia Priority: Secondary Status: Resolved (9) Anemia Priority: Secondary Status: Chronic (10) Hypomagnesemia Priority: Secondary Status: Resolved (11) Hypokalemia Priority: Secondary Status: Resolved - Respiratory Orders Smoking Cessation: Smoking cessation has been advised. For more information, call the [place] Tobacco Quit Line at 3-607-NHAR-NOW. - Services Needed Following services are medically necessary services: Home Health Aide, Physical Therapy, Occupational Therapy - Transfer Medications Prescriptions: Ferrous Sulfate 325 mg PO BIDWM #30 tablet levoFLOXacin [Levaquin] 750 mg PO DAILY #1 tablet Home Medications: Albuterol Sulfate [Albuterol Inhaler] 2 puff PO Q6H PRN 06/28/18 [History] Dronabinol [Marinol] 5 mg PO BID 06/28/18 [History] Ergocalciferol (VITAMIN D2) [Vitamin D2] 50,000 units PO MO 06/28/18 [History] Ondansetron HCl 4 mg PO Q8H PRN 06/28/18 [History] OxyCODONE Immed Rel [Roxicodone 10 MG] 10 mg PO Q4-6H PRN 06/28/18 [History] Tramadol HCl [Ultram] 50 mg PO Q6H PRN 06/28/18 [History] Albuterol Neb [AccuNeb] 1.25 mg IH Q6H 07/12/18 [History] Aspirin Enteric Coated [Aspirin EC] 325 mg PO BID 07/12/18 [History] Cyclobenzaprine HCl 5 - 10 mg PO Q8H PRN 07/12/18 [History] Ibuprofen 800 mg PO TID PRN 07/12/18 [History] Multivit-Min/FA/Lycopen/Lutein [Men 50 Plus Multivitamin Tab] 1 tab PO DAILY 07/12/18 [History] NALOXONE 4 MG Nasal [place] [Narcan] 1 - 2 spray NS AD PRN 07/12/18 [History] Ferrous Sulfate 325 mg PO BIDWM #30 tablet 07/15/18 [Rx] levoFLOXacin [Levaquin] 750 mg PO DAILY #1 tablet 07/15/18 [Rx] Allergies/Adverse Reactions: Allergy/AdvReac Type Severity Reaction Status Date / Time No Known Allergies Allergy Verified 07/12/18 17:59 Certification: Further, I certify that my clinical findings support that this patient is homebound (i.e. absences from home require considerable and taxing effort and are for medical reasons or jehovah's witness services or infrequently or short duration when for other reasons) because: Homebound Reason: Patient requires assistance of a person or device to safely leave home Attestation: My signature below is to certify that this patient is under my care and that I, or nurse practitioner, or a physician's dyer assistant working with me, has a [id number] encounter with this patient.
--- NOTE | 2018-07-15 11:47 | Discharge Summary ---
- NOTES TO OUTPATIENT PROVIDER Notes to Outpatient Provider: Pt was admitted for acute respiratory distress secondary to HCAP.He was treated with IV abx and is being discharged to home with PO abx to complete therapy for a total of five days.Pt was also noted to have iron deficiency anemia so was started on ferrous sulfate. Please closely monitor H&H as oupatient. Orders not resulted at time of discharge: Pending orders 07/12/18 08:41 Culture,Anaerobic [RM] Stat 07/12/18 08:44 ECG 12 lead ECG [ECG] Stat 07/12/18 09:26 Culture,Blood [BC] Stat Date of Encounter: 07/15/18 Time of Encounter: 11:44 - Discharge Diagnosis (1) HCAP (healthcare-associated pneumonia) Priority: Primary Status: Acute (2) Status post total hip replacement, left Priority: Secondary Status: Chronic (3) COPD (chronic obstructive pulmonary disease) Priority: Secondary Status: Chronic Qualifiers: COPD type: unspecified COPD Qualified Code(s): J44.9 - Chronic obstructive pulmonary disease, unspecified (4) Tobacco dependence Priority: Secondary Status: Chronic (5) HTN (hypertension) Priority: Secondary Status: Chronic Qualifiers: Hypertension type: unspecified Qualified Code(s): I10 - Essential (primary) hypertension (6) PEG (percutaneous endoscopic gastrostomy) status Priority: Secondary Status: Chronic (7) History of throat cancer Priority: Secondary Status: Chronic (8) Hyponatremia Priority: Secondary Status: Resolved (9) Anemia Priority: Secondary Status: Chronic Qualifiers: Anemia type: unspecified type Qualified Code(s): D64.9 - Anemia, unspecified (10) Hypomagnesemia Priority: Secondary Status: Resolved (11) Hypokalemia Priority: Secondary Status: Resolved Hospital course: Mr. Bass is a 57 year old male with past medical history of COPD, hypertension, anemia, tonsillar cancer in remission, PEG tube, status post left hip replacement on 06/28/2018 who presents to the hospital for acute respiratory distress secondary to healthcare acquired pneumonia. Patient was started on broad-spectrum IV antibiotics. He was also found to have hyponatremia and hypomagnesemia. Electrolytes were replenished and patient improved with IV antibiotic therapy. Patient is currently back to his baseline respiratory status. Patient reports of being an every day smoker and is willing to quit after discharge. His blood cultures remain negative thus far and patient was transitioned to oral antibiotic therapy. Patient is medically stable for discharge to home with outpatient follow-up with PCP. Patient is to complete a total of 5 days of antibiotic therapy after discharge. Patient reports of having home health services for physical therapy due to his left hip surgery, w hich will be continued on discharge. Patient was seen and examined on the day of discharge. He reports of feeling significantly better since his hospitalization. He is medically stable for discharge to home today. Patient demonstrates understanding of his diagnosis and agrees with the discharge care and plan. During this hospitalization patient was also reported to have iron deficiency anemia and was started on iron supplementation. Discharge discussed with: patient, nurse, social work, case management Time spent discussing smoking cessation with patient: 3 to 10 minutes - Time Spent with Patient Total time spent providing and/or coordinating discharge services: 35 mins Time spent: Greater than 30 minutes - Discharge Medications Prescriptions: New Ferrous Sulfate 325 mg PO BIDWM #30 tablet levoFLOXacin [Levaquin] 750 mg PO DAILY #1 tablet Continued Ergocalciferol (VITAMIN D2) [Vitamin D2] 50,000 units PO MO Tramadol HCl [Ultram] 50 mg PO Q6H PRN PRN Reason: Pain OxyCODONE Immed Rel [Roxicodone 10 MG] 10 mg PO Q4-6H PRN PRN Reason: Pain Dronabinol [Marinol] 5 mg PO BID Albuterol Sulfate [Albuterol Inhaler] 2 puff PO Q6H PRN PRN Reason: Shortness Of Breath Ondansetron HCl 4 mg PO Q8H PRN PRN Reason: Nausea Albuterol Neb [AccuNeb] 1.25 mg IH Q6H Aspirin Enteric Coated [Aspirin EC] 325 mg PO BID Cyclobenzaprine HCl 5 - 10 mg PO Q8H PRN PRN Reason: Muscle Spasm Ibuprofen 800 mg PO TID PRN PRN Reason: Pain NALOXONE 4 MG Nasal [place] [Narcan] 1 - 2 spray NS AD PRN PRN Reason: OVERDOSE Multivit-Min/FA/Lycopen/Lutein [Men 50 Plus Multivitamin Tab] 1 tab PO DAILY Home Medications: Albuterol Sulfate [Albuterol Inhaler] 2 puff PO Q6H PRN 06/28/18 [History] Dronabinol [Marinol] 5 mg PO BID 06/28/18 [History] Ergocalciferol (VITAMIN D2) [Vitamin D2] 50,000 units PO MO 06/28/18 [History] Ondansetron HCl 4 mg PO Q8H PRN 06/28/18 [History] OxyCODONE Immed Rel [Roxicodone 10 MG] 10 mg PO Q4-6H PRN 06/28/18 [History] Tramadol HCl [Ultram] 50 mg PO Q6H PRN 06/28/18 [History] Albuterol Neb [AccuNeb] 1.25 mg IH Q6H 07/12/18 [History] Aspirin Enteric Coated [Aspirin EC] 325 mg PO BID 07/12/18 [History] Cyclobenzaprine HCl 5 - 10 mg PO Q8H PRN 07/12/18 [History] Ibuprofen 800 mg PO TID PRN 07/12/18 [History] Multivit-Min/FA/Lycopen/Lutein [Men 50 Plus Multivitamin Tab] 1 tab PO DAILY 07/12/18 [History] NALOXONE 4 MG Nasal [place] [Narcan] 1 - 2 spray NS AD PRN 07/12/18 [History] Ferrous Sulfate 325 mg PO BIDWM #30 tablet 07/15/18 [Rx] levoFLOXacin [Levaquin] 750 mg PO DAILY #1 tablet 07/15/18 [Rx] Allergies/Adverse Reactions: Allergy/AdvReac Type Severity Reaction Status Date / Time No Known Allergies Allergy Verified 07/12/18 17:59 Date of admission: 07/12/18 10:29 Primary care physician: Jimmy Byers MD Consults: 07/12/18 11:28 Consult to Nutrition [CONS] Routine Comment: Consulting Provider: NUTRITION Reason for Dietary Consult: Tube Feed Start & Manage PO Supplementation 07/12/18 11:44 Consult to Wound Care [CONS] Routine Reason for Consult: Peg tube site, eval and treat Call Completed: No 07/13/18 12:39 Consult to Physical Therapy [CONS] Routine Comment: Evaluate, develop and implement POC Reason for Consult: s/p left total hip replacement Does patient have active BEDREST order?: No Is patient medically & hemodynamically stable?: Yes 07/13/18 12:52 Consult to Nurse Navigator [CONS] Routine Comment: hcap Discharging clinician: Ivet Mohan Anticipated date of discharge: 07/15/18 - Constitutional Vitals: Temp Pulse Resp BP Pulse Ox 97.8 F 81 18 118/73 95 07/15/18 11:36 07/15/18 11:36 07/15/18 11:36 07/15/18 11:36 07/15/18 11:36 General appearance: Present: cooperative, A&O X 3, pleasant, no acute distress, answers questions appropriately Exam: Vitals: Reviewed General: Alert and oriented x3. In no acute distress Skin: Normal color, no rash, no lesions. HEENT: EOMI, pupils equal, round and reactive. Cardiovascular: RRR, normal S1 & S2, no rubs, murmurs or gallops. No JVD. Pulse regular. Lungs: equal air entry bilaterally, no wheezing, no rales Abdomen: Soft, non-tender, no rigidity. PEG tube intact. Extremities: No deformity, no edema or tenderness, no joint swelling or clubbing. Neurological: Normal cognition and motor skills. Pulses:Carotid and radial pulses normal +2. Rest of the physical exam is non contributory - Patient Status Disposition: Home Health Service Condition: Fair Functional capacity at discharge: independent ambulation - Discharge Instructions Follow Up With: Jimmy Byers MD [Primary Care Provider] - Additional Instructions: 1. Please follow-up with your primary care physician within 5 days after your discharge from the hospital 2. Please continue oral antibiotics for 1 more day as prescribed. 3. Please continue all your home medications as prescribed by your primary care physician. 4. Please seek medical help immediately if you have difficulty breathing or if chest pain occurs. 5. You have been started on iron supplements due to iron deficiency anemia. This may cause constipation and black stools. Please ask your PCP to closely monitor your Hgb levels. - Diet and Activity Activity: as per physical therapy Diet: low fat, low cholesterol, low salt diet
== END 2018-07-15 13:00 | disposition home health service (06) | DRG 139 ==
LOC: EMEROOARM 08:10 → 2ANU 10:29 → SUATTDRO 10:29 → 2ANU 12:20
PROVIDERS: ADMIT Internal Medicine Nephrology; ATTEND Internal Medicine